=== PATIENT | male | born 1935 | race Caucasian/White ===

== ENCOUNTER 2017-02-09 01:55 | Emergency (ER) | payer MEDICARE, BC ==
[2017-02-09 01:55] VITALS: BP 131/73; PULSE 77; RESP 16; TEMP 97.8
[~2017-02-09 01:55] MED LIST: CLOP75 PO; DARV PO; FISH1000 PO; ISOS30TA17 PO; LOTE20TA PO; MONT10TA2 PO; PACE200T4 PO; POTA-243 PO; PRED20 PO; PREG300 PO; ROSU5 PO; THYROXINE PO
--- NOTE | 2017-02-09 01:59 | PD ---
HPI Chief Complaint: Fall Time Seen by Provider: 01:58 Travel History International Travel<30 days: No Contact w/Intl Traveler<30days: No History of Present Illness HPI Patient is an 81-year-old male presents emergency department for evaluation of head injury after a slip and fall. Patient states he was getting up to make himself a [place] today when he lost his footing and fell in the kitchen. He states he impacted the right side of his head. Denies any loss of consciousness. Complaining only of a mild headache and his chronic low back pain is states is due for his gabapentin and his Irma. Patient states was able to get to his knees and walk on his knees over to a phone to call 911. Does not know his last tetanus. Denies any chest pain abdominal pain extremity pain. PFSH Past Medical History Arthritis: Yes Autoimmune Disease: No Blood Disorders: No Cancer: No Cardiovascular Problems: Yes High Cholesterol: Yes Congestive Heart Failure: Yes Coronary Artery Disease: Yes Diabetes: Yes (DIET CONTROLLED) Diminished Hearing: No GERD: No Glaucoma: No Genitourinary: No Hepatitis: No Hiatal Hernia: Yes (VENTRAL HERNIA) Hypertension: Yes Kidney Stones: No Musculoskeletal: Yes Neurologic: No Psychiatric: No Respiratory: No Myocardial Infarction: Yes Renal Failure: No Thyroid Disease: Yes Ulcer: No Past Surgical History Abdominal Surgery: No Body Medical Devices: STENT PLACEMENT Cardiac Surgery: Yes (CARDIAC CATH, STENTS) Ear Surgery: No Endocrine Surgery: No Eye Surgery: Yes (CATARACT SX BOTH EYES) Genitourinary Surgery: Yes (LEFT KIDNEY) Gynecologic Surgery: No Joint Replacement: Yes (RIGHT HIP, LEFT KNEE REPLACEMENT) Oral Surgery: No Pacemaker: Yes Thoracic Surgery: Yes Social History Alcohol Use: Yes (3 TIMES A YEAR) Tobacco Use: No (QUIT >34 YEARS AGO 1974) Substance Use: No Allergies-Medications (Allergen,Severity, Reaction): Coded Allergies: adhesive (Unverified Allergy, Intermediate, REDNESS, 01/11/17) Reported Meds & Prescriptions Reported Meds & Active Scripts Active Reported Oxycodone (Oxycodone HCl) 5 Mg Tab 5 Mg PO Q8HR Gabapentin 300 Mg Cap 300 Mg PO BID Prednisone 5 Mg Tab 5 Mg PO DAILY Potassium Chloride ER (Potassium Chloride) 10 Meq Cap 10 Meq PO DAILY Singulair (Montelukast Sodium) 10 Mg Tab 10 Mg PO HS Plavix (Clopidogrel Bisulfate) 75 Mg Tab 75 Mg PO DAILY Review of Systems Except as stated in HPI: all other systems reviewed are Neg Physical Exam Narrative GENERAL: Well-developed well-nourished, no obvious distress. SKIN: Focused skin assessment warm/dry. HEAD: No turner signs no raccoons eyes, there is a small abrasion over the right catholic. Normocephalic. EYES: Pupils equal and round. No scleral icterus. No injection or drainage. ENT: No nasal bleeding or discharge. Mucous membranes pink and moist. NECK: Trachea midline. No JVD. CARDIOVASCULAR: Regular rate and rhythm. No murmur appreciated. RESPIRATORY: No accessory muscle use. Clear to auscultation. Breath sounds equal bilaterally. GASTROINTESTINAL: Abdomen soft, non-tender, nondistended. Hepatic and splenic margins not palpable. MUSCULOSKELETAL: No obvious deformities. No clubbing. No cyanosis. No edema. NEUROLOGICAL: Awake and alert. No obvious cranial nerve deficits. Motor grossly within normal limits. Normal speech. PSYCHIATRIC: Appropriate mood and affect; insight and judgment normal. Data Data Last Documented VS Vital Signs Date Time Temp Pulse Resp B/P (MAP) Pulse Ox O2 Delivery O2 Flow Rate FiO2 02/09/17 06:00 78 16 117/65 (82) 99 02/09/17 03:41 Room Air 02/09/17 01:[address] Brain W/O Iv Contrast(Rout) (02/09/17 ) Ct Cerv Spine W/O Contrast (02/09/17 ) Sqsl-Zen-Yfxons (Booster) Inj (Boostrix (02/09/17 02:15) Acetamin-Hydrocod 325-5 Mg (Irma 5-325 (02/09/17 02:30) Gabapentin (Neurontin) (02/09/17 02:30) Acetamin-Hydrocod 325-5 Mg (Irma 5-325 (02/09/17 03:00) MDM Medical Decision Making Medical Screen Exam Complete: Yes Emergency Medical Condition: Yes Differential Diagnosis closed head injury, neck injury, fall. Narrative Course patient roomed in the emergency department, appears well, neurologically intact. Abrasion was approximated with Dermabond. Last [address] 02/09/17 0000 Signed Impressions: Service Date/Time: Thursday, February 09, 2017 03:55 - CONCLUSION: 1. No acute intracranial abnormalities. Cortical volume loss. Abraham Tomlinson MD Cervical Spine CT 02/09/17 0000 Signed Impressions: Service Date/Time: Thursday, February 09, 2017 03:55 - CONCLUSION: 1. Negative for acute fracture. Minimal degenerative anterolisthesis of C6 on C7 and C7 on T1. 2. Osteopenia with findings of ankylosing spondylitis. Abraham Tomlinson MD Discuss results with the patient, is calling his neighbor to come pick him up. He stable for discharge Diagnosis Primary Impression: Head injury, closed Qualified Codes: S09.90XA - Unspecified injury of head, initial encounter Patient Instructions: Fall Prevention (DC), General Instructions, Head Injury ( DC) Disposition: 01 DISCHARGE HOME Condition: Stable Jose Maria Kelley MD Feb 09, 2017 01:59
[2017-02-09] MEDS ORDERED: DIPHTH/TETANUS/ACEL PERTUSSIS (BOOSTER) 0.5 ML VIAL/PFS IM ONE (02:15)
[2017-02-09] MEDS ORDERED: PLAV75TA29 PO (02:25)
[2017-02-09] MEDS ORDERED: GABA300C5 PO (02:28)
[2017-02-09] MEDS ORDERED: POTA10CA PO (02:28)
[2017-02-09] MEDS ORDERED: PRED5TAB PO (02:28)
[2017-02-09] MEDS ORDERED: MONT10TA2 PO (02:28)
[2017-02-09] MEDS ORDERED: OXYC-392 PO (02:28)
[2017-02-09] MEDS ORDERED: GABAPENTIN 300 MG CAP PO ONE (02:30)
[2017-02-09] MEDS ORDERED: ACETAMINOPHEN/HYDROcodone 325 MG/5 MG TAB PO ONE ×2 (02:30→03:00)
[2017-02-09 03:41] VITALS: BP 137/66; PULSE 78; RESP 16; O2SAT 97
--- NOTE | 2017-02-09 04:27 | RADRPT ---
EXAM DATE/TIME: 02/09/2017 03:55 [facility] COMPARISON: No previous studies available for comparison. INDICATIONS : Trauma, fall today. Laceration to left forehead. RADIATION DOSE: 72.15 CTDIvol (mGy) MEDICAL HISTORY : Myocardial infarction. Congestive heart failure. Hypertension. SURGICAL HISTORY : Pacemaker. ENCOUNTER: Initial ACUITY: 1 day PAIN SCALE: 4/10 LOCATION: Left head TECHNIQUE: Multiple contiguous axial images were obtained of the head. Using automated exposure control and adj ustment of the mA and/or kV according to patient size, radiation dose was kept as low as reasonably a chievable to obtain optimal diagnostic quality images. DICOM format image data is available electro nically for review and comparison. FINDINGS: CEREBRUM: The ventricles are normal for age. No evidence of midline shift, mass lesion, hemorrhage or acute in farction. No extra-axial fluid collections are seen. POSTERIOR FOSSA: The cerebellum and brainstem are intact. The 4th ventricle is midline. The cerebellopontine angle i s unremarkable. EXTRACRANIAL: The visualized portion of the orbits is intact. SKULL: The calvaria is intact. No evidence of skull fracture. CONCLUSION: 1. No acute intracranial abnormalities. Cortical volume loss. Abraham Tomlinson MD on February 09, 2017 at 4:23 Board Certified Radiologist. This report was verified electronically.
--- NOTE | 2017-02-09 04:43 | RADRPT ---
EXAM DATE/TIME: 02/09/2017 03:55 [facility] COMPARISON: No previous studies available for comparison. INDICATIONS : Trauma, fall today. Laceration to left forehead. RADIATION DOSE: 26.54 CTDIvol (mGy) MEDICAL HISTORY : Myocardial infarction. Congestive heart failure. Hypertension. SURGICAL HISTORY : Pacemaker. ENCOUNTER: Initial ACUITY: 1 day PAIN SCALE: 3/10 LOCATION: Bilateral neck TECHNIQUE: Volumetric scanning of the cervical spine was performed. Multiplanar reconstructions in the sagittal, coronal and oblique axial planes were performed. Using automated exposure control and adjustment o f the mA and/or kV according to patient size, radiation dose was kept as low as reasonably achievable to obtain optimal diagnostic quality images. DICOM format image data is available electronically f or review and comparison. FINDINGS: There is partial fusion across the facet joints and there is some vertebral body ankylosis in a patte rn suggestive of ankylosing spondylitis. No acute fracture. Minimal anterolisthesis of C6 on C7 and C 7 on T1 is likely degenerative. No prevertebral soft tissue swelling. CONCLUSION: 1. Negative for acute fracture. Minimal degenerative anterolisthesis of C6 on C7 and C7 on T1. 2. Osteopenia with findings of ankylosing spondylitis. Abraham Tomlinson MD on February 09, 2017 at 4:38 Board Certified Radiologist. This report was verified electronically.
[2017-02-09 06:00] VITALS: BP 117/65
== END 2017-02-09 09:53 | disposition home or self-care (01) ==
LOC: PHED 01:55
DX: S00.81XA Abrasion of other part of head, initial encounter (principal); S09.90XA Unspecified injury of head, initial encounter; M54.5 Low back pain; E11.9 Type 2 diabetes mellitus without complications; I10 Essential (primary) hypertension; E07.9 Disorder of thyroid, unspecified; E78.00 Pure hypercholesterolemia, unspecified; I25.2 Old myocardial infarction; W18.39XA Other fall on same level, initial encounter; Y92.000 Kitchen of unspecified non-institutional (private) residence as the place of occurrence of the external cause; Z23 Encounter for immunization; Z86.79 Personal history of other diseases of the circulatory system; Z87.39 Personal history of other diseases of the musculoskeletal system and connective tissue
CPT/HCPCS: 12011; 70450; 72125; 90471; 90715

== ENCOUNTER → 2017-05-27 | Outpatient (CLI) | payer MEDICARE, BC ==
[~2017-05-27] MED LIST changes: -CLOP75 PO; -DARV PO; -FISH1000 PO; +GABA300C5 PO; -ISOS30TA17 PO; -LOTE20TA PO; +OXYC-392 PO; -PACE200T4 PO; +PLAV75TA29 PO; -POTA-243 PO; +POTA10CA PO; -PRED20 PO; +PRED5TAB PO; -PREG300 PO; -ROSU5 PO; -THYROXINE PO
--- NOTE | 2017-06-01 13:17 | RADRPT ---
EXAM DATE/TIME: 05/27/2017 09:47 [facility] COMPARISON : No previous studies available for comparison. INDICATIONS : Patient with a history of kidney cancer, needs left renal biopsy and cryo. HISTORY OF PRESENT ILLNESS: The patient is an 81-year-old who underwent previous laparoscopic assisted cryoablation of the renal mass on the left kidney. This lesion has been followed by Dr. Kong who performed the initial proce dure. Recent CT scans have demonstrated some increase in size of the lesion which now measures approx imately 2.[address] Kong request biopsy of the left lesion and possible repeat percutaneous cryoab lation. The patient is also known to have a 7 cm solid mass arising from the right kidney. The patient is sc heduled for partial nephrectomy of the right kidney. IMAGING STUDIES: The patient's CT scan of February 2017 was reviewed. There is indeed a 2.5 cm lesion within the left k idney. There is fat necrosis around this. There is some enhancement within the central portion of thi s. The patient's 7 cm right renal mass is evident as well. ASSESSMENT: 1. The patient has an enlarging left renal mass post previous cryoablation. There is uncertain whethe r this represents fat necrosis or recurrent tumor. 2. 7 cm right renal mass. The patient is scheduled for partial nephrectomy of the right kidney. PLAN: Biopsy of the left renal lesion will be performed. If this is positive for malignancy repeat cryoabla tion can be performed. TIME SPENT: 20 minutes. Renzo Lei MD on June 01, 2017 at 13:09 Board Certified Radiologist. This report was verified electronically.
== END ==
LOC: HRAD 09:36
PROVIDERS: ATTEND Urology
DX: N28.89 Other specified disorders of kidney and ureter (principal)

== ENCOUNTER 2017-06-29 06:25 | Day surgery (SDC) | payer MEDICARE, BC ==
[2017-06-29] VITALS (10 sets, daily range): BP systolic 105–144; BP diastolic 64–85; PULSE 60–65; RESP 18–20; TEMP 97–98; O2SAT 92–98
[~2017-06-29] VITALS: Ht 167.6 cm; Wt 89.5 kg
[2017-06-29] MEDS ORDERED: GELATIN 12 MM/7 MM FOAM ONE (06:26)
[2017-06-29] MEDS ORDERED: FLUTI44I INH (07:02)
[2017-06-29] MEDS ORDERED: VITA1000 PO (07:02)
[2017-06-29] MEDS ORDERED: VENTAER INH (07:02)
[2017-06-29] MEDS ORDERED: BENA10TA PO (07:02)
[2017-06-29] MEDS ORDERED: FURO20TA PO (07:02)
[2017-06-29] MEDS ORDERED: GLIM2TAB PO (07:02)
[2017-06-29] MEDS ORDERED: SOTA80TA PO (07:02)
[2017-06-29] MEDS ORDERED: ZAFI1TAB4 PO (07:02)
[2017-06-29] MEDS ORDERED: SPIRCAP INH (07:02)
[2017-06-29] MEDS ORDERED: ATOR20TA15 PO (07:02)
[2017-06-29] MEDS ORDERED: TAMS0.4C4 PO (07:02)
[2017-06-29] MEDS ORDERED: VITA10002 PO (07:02)
[2017-06-29] MEDS ORDERED: LEVO.1 PO (07:02)
[2017-06-29] MEDS ORDERED: FINA5TAB2 PO (07:02)
[2017-06-29] MEDS ORDERED: SODIUM CHLOR 0.9% 1000 ML IV SCH (07:15)
[2017-06-29] MEDS ORDERED: LIDOCAINE HCL 1% 20 ML VIAL ONE (08:04)
[2017-06-29] MEDS ORDERED: MIDAZOLAM HCL 2 MG/2 ML VIAL ONE (08:15)
[2017-06-29] MEDS ORDERED: fentaNYL CITRATE 250 MCG/5 ML AMP ONE (08:16)
--- NOTE | 2017-06-29 09:07 | PD.RAD ---
Post CT Procedure Prog Note Pre Procedure Diagnosis: (1) Left renal mass Post Procedure Diagnosis: (1) Left renal mass Procedure Date: Jun 29, 2017 Supervising Radiologist: Mookie Bal Proceduralist/Assist: nader millan Estimated blood loss: none Anesthesia: Conscious Sedation Plan of Activity Patient to Unit: ROPU Patient Condition: Good Additional Comments: very minimal retroperitoneal hemorrhage See PACS Report for procedural detail/treatment Mookie Bal MD Jun 29, 2017 09:07
[2017-06-29] MEDS ORDERED: GABAPENTIN 300 MG CAP PO ONE (10:30)
[2017-06-29 13:43] LABS: AUTOMATED NEUTROPHIL # 4.6 TH/MM3 (1.8-7.7); BASOPHIL # 0.1 TH/MM3 (0-0.2); BASOPHIL % 1.3 % (0.0-2.0); EOSINOPHIL # 0.2 TH/MM3 (0-0.4); EOSINOPHIL % 2.6 % (0.0-4.0); HEMATOCRIT 37.8 % (39.0-51.0); HEMOGLOBIN 12.7 GM/DL (13.0-17.0); LYMPHOCYTE # 1.3 TH/MM3 (1.0-4.8); MEAN CELL VOLUME 87.5 FL (80.0-100.0); MEAN CORPUSCULAR HEMOGLOBIN 29.5 PG (27.0-34.0); MEAN CORPUSCULAR HGB CONC 33.7 % (32.0-36.0); MONO % 10.5 % (0.0-8.0); MONOCYTE # 0.7 TH/MM3 (0-0.9); NEUT % 66.6 % (16.0-70.0); PLATELET COUNT 265 TH/MM3 (150-450); RED BLOOD COUNT 4.32 MIL/MM3 (4.50-5.90); RED CELL DISTRIBUTION WIDTH 15.2 % (11.6-17.2); WHITE BLOOD COUNT 6.9 TH/MM3 (4.0-11.0)
[2017-06-29 15:20] LABS: AUTOMATED NEUTROPHIL # 5.2 TH/MM3 (1.8-7.7); BASOPHIL # 0.1 TH/MM3 (0-0.2); BASOPHIL % 1.2 % (0.0-2.0); EOSINOPHIL # 0.2 TH/MM3 (0-0.4); EOSINOPHIL % 2.2 % (0.0-4.0); HEMATOCRIT 37.7 % (39.0-51.0); LYMPH % 16.9 % (9.0-44.0); LYMPHOCYTE # 1.3 TH/MM3 (1.0-4.8); MEAN CORPUSCULAR HGB CONC 34.5 % (32.0-36.0); MEAN PLATELET VOLUME 6.7 FL (7.0-11.0); MONO % 11.3 % (0.0-8.0); MONOCYTE # 0.9 TH/MM3 (0-0.9); NEUT % 68.4 % (16.0-70.0); PLATELET COUNT 271 TH/MM3 (150-450); RED BLOOD COUNT 4.33 MIL/MM3 (4.50-5.90); RED CELL DISTRIBUTION WIDTH 15.2 % (11.6-17.2); WHITE BLOOD COUNT 7.7 TH/MM3 (4.0-11.0)
--- NOTE | 2017-06-29 16:23 | RADRPT ---
EXAM DATE/TIME: 06/29/2017 08:37 [facility] COMPARISON: No previous studies available for comparison. INDICATIONS : Left renal mass. SEDATION TIME: 30 minutes BIOPSY SITE: Left flank. MEDICATION(S): 1.) 4 mg midazolam (Versed) IV 2.) 200 mcg fentanyl (Sublimaze) IV DEVICE(S): 1.) 18 gauge Lorenz blunt needle 2.) 20 gauge Temno core biopsy needle MEDICAL HISTORY : Renal cell carcinoma. Benign prostatic hyperplasia, (BPH) Renal calculi. Cardiovascular disease, myoc ardial infarction, diabetes, hypertension. SURGICAL HISTORY : Pacemaker. ENCOUNTER: Initial ACUITY: 1 day PAIN SCORE: 0/10 LOCATION: Left flank A total of three core specimen(s) were obtained and sent to the laboratory for pathologic evaluation. PROCEDURE: 1. CT guided renal biopsy. Prior to the procedure informed consent was obtained. Any appropriate prior imaging studies were rev iewed. Using automated exposure control and adjustment of the mA and/or kV according to patient size, radiat ion dose was kept as low as reasonably achievable to obtain optimal diagnostic quality images. DICOM format image data is available electronically for review and comparison. The site was prepped in a sterile fashion. Full sterile technique was used, including cap, mask, evelyn rile gloves and gown and a large sterile sheet. Hand hygiene and 2% chlorhexidine and/or betadine/al cohol prep was utilized per protocol for cutaneous antisepsis. The skin and subcutaneous tissues wer e infiltrated with local anesthetic solution. With CT guidance the previously identified target was localized. Biopsy was performed using the presc ribed needle as above. Adequate hemostasis was obtained with compression at the puncture site. Follow-up CT scan reveals no hemorrhage. The patient tolerated the procedure well and there were no complications. The patient was returned to the Radiology Outpatient Unit in stable condition. CONCLUSION: Uncomplicated CT guided biopsy of the previously treated/post ablation lesion along the lateral left kidney. Mookie Bal MD on June 29, 2017 at 16:20 Board Certified Radiologist. This report was verified electronically.
== END 2017-06-29 16:00 | disposition home or self-care (01) ==
LOC: HRAD 06:25 → HRIP 06:26 → HRAD 16:00
PROVIDERS: ATTEND Urology
DX: D41.01 Neoplasm of uncertain behavior of right kidney (principal); I10 Essential (primary) hypertension; I25.10 Atherosclerotic heart disease of native coronary artery without angina pectoris; N40.0 Benign prostatic hyperplasia without lower urinary tract symptoms; E11.9 Type 2 diabetes mellitus without complications; I25.2 Old myocardial infarction; Z87.442 Personal history of urinary calculi; Z95.0 Presence of cardiac pacemaker; Z79.84 Long term (current) use of oral hypoglycemic drugs
CPT/HCPCS: 50200; 77012; 85025; 88305; J2250; J3010; J7030